=== PATIENT | female | born 1985 ===

== ENCOUNTER 2018-01-12 14:05 | Emergency (ER) | payer BC ==
[2018-01-12 14:30] VITALS: BP 128/71
--- NOTE | 2018-01-12 15:02 | RAD ---
HISTORY: Right elbow pain, status post fall COMPARISONS: None VIEWS: 4, Frontal, lateral, and oblique views of the right elbow FINDINGS: BONE DENSITY: Normal. BONES: There is a minimally impacted fracture of the radial head. JOINTS: There is no arthropathy. There is a small joint effusion. ALIGNMENT: There is no dislocation. SOFT TISSUES: Unremarkable. OTHER FINDINGS: None. IMPRESSION: MINIMALLY IMPACTED FRACTURE OF THE RADIAL HEAD
--- NOTE | 2018-01-12 15:06 | RAD ---
INDICATION: Right wrist injury. TECHNIQUE: 3 views of the right wrist were obtained. FINDINGS: The bones are normal alignment. Joint spaces appear maintained. There is a faint radiolucent line present at the base of the second metacarpal in the metaphysis likely incidental although a nondisplaced fracture cannot be excluded. No other fractures are seen. IMPRESSION: THERE IS A FAINT RADIOLUCENT LINE PRESENT AT THE BASE OF THE SECOND METACARPAL, LIKELY ARTIFACTUAL ALTHOUGH A FRACTURE CANNOT BE EXCLUDED. RECOMMEND CLINICAL CORRELATION.
--- NOTE | 2018-01-12 15:19 | RAD ---
HISTORY: Pain, status post fall COMPARISONS: Elbow dated January 12, 2018 VIEWS: 2, Frontal and lateral views of the right forearm FINDINGS: BONE DENSITY: Normal. BONES: Again noted is a fracture of the radial head as described on the elbow film. JOINTS: There is no arthropathy. ALIGNMENT: There is no dislocation. SOFT TISSUES: Unremarkable. OTHER FINDINGS: None. IMPRESSION: AGAIN NOTED IS A FRACTURE OF THE RADIAL HEAD.
--- NOTE | 2018-01-12 17:47 | UC ---
Marcell Borrego Nikita, scribed for Wiliam Nguyen MD on 01/12/18 at 1444 . Upper Extremity HPI - HPI Summary HPI Summary: This patient is a 32 year old F presenting to [facility] with a chief complaint of R elbow, R forearm, and R wrist pain s/p fall while rollerblading 2 days ago. The CC is described as aching. The patient rates the pain 6/10 in severity. Symptoms aggravated by nothing. Symptoms alleviated by nothing. Patient denies R hand pain. - History of Current Complaint Chief Complaint: UCUpperExtremity Stated Complaint: FELL RIGHT ARM INJURY Time Seen by Provider: 01/12/18 14:25 Hx Obtained From: Patient Hx Last Menstrual Period: 01/07/18 Onset/Duration: Sudden Onset, Lasting Days, Still Present Severity Initially: Moderate Severity Currently: Moderate Pain Intensity: 6 Pain Scale Used: 0-10 Numeric Location Of Pain: Is Discrete @ - R elbow, R forearm, and R wrist Character: Aching Aggravating Factor(s): Nothing Alleviating Factor(s): Nothing Associated Signs And Symptoms: Positive: Other - Patient denies R hand pain. - Allergies/Home Medications Allergies/Adverse Reactions: Allergies Allergy/AdvReac Type Severity Reaction Status Date / Time No Known Allergies Allergy Verified 01/12/18 14:30 Home Medications: Home Medications NK [No Home Medications Reported] 01/12/18 [History Confirmed 01/12/18] PMH/Surg Hx/FS Hx/Imm Hx Endocrine History: Other Other Endocrine History: No DM Cardiovascular History: Other Other Cardiovascular History: No HTN, CAD - Surgical History Surgical History: None - Family History Known Family History: Negative: Cardiac Disease, Hypertension, Diabetes - Social History Alcohol Use: Occasionally Substance Use Type: None Smoking Status (MU): Never Smoked Tobacco - Immunization History Most Recent Tetanus Shot: UTD Review of Systems Constitutional: Other - denies fever Musculoskeletal: Other: - R elbow, R forearm, and R wrist pain; Denies R hand pain All Other Systems Reviewed And Are Negative: Yes Physical Exam - Summary Physical Exam Summary: VITAL SIGNS: Reviewed. GENERAL: ~Patient is a well developed and nourished FEMALE who is lying comfortable in the stretcher. ~Patient is not in any acute respiratory distress. HEAD AND FACE: Normocephalic EYES: PERRLA, EOMI x 2. EARS: Hearing grossly intact. MOUTH: Oropharynx within normal limits. NECK: Supple, trachea is midline, no adenopathy, no JVD, no carotid bruit. CHEST: Symmetric, no tenderness at palpation LUNGS: Clear to auscultation bilaterally. No wheezing or crackles. CVS: Regular rate and rhythm, S1 and S2 present, no murmurs or gallops appreciated. ABDOMEN: Soft, non-tender. Bowel sounds are normal. No abdominal abnormal pulsations. EXTREMITIES: Full ROM in all major joints, no cyanosis or clubbing. Swelling around R elbow, tenderness of the R forearm and R wrist. NEURO: Alert and oriented x 3. No acute neurological deficits. Speech is normal and follows commands. SKIN: Dry and warm Triage Information Reviewed: Yes Vital Signs: Initial Vital Signs Temp 98.4 F 01/12/18 14:25 Pulse 82 01/12/18 14:25 Resp 17 01/12/18 14:25 BP 128/71 01/12/18 14:25 Pulse Ox 100 01/12/18 14:25 Vital Signs Reviewed: Yes Diagnostics - Radiology R Wrist XR Radiology Interpretation Completed By: Radiologist - THERE IS A FAINT RADIOLUCENT LINE PRESENT AT THE BASE OF THE SECOND METACARPAL, LIKELY ARTIFACTUAL ALTHOUGH A FRACTURE CANNOT BE EXCLUDED. RECOMMEND CLINICAL CORRELATION. [facility] physician has reviewed this radiology report. R elbow XR Radiology Interpretation Completed By: Radiologist - MINIMALLY IMPACTED FRACTURE OF THE RADIAL HEAD. [facility] physician has reviewed this radiology report. Re-Evaluation - Re-Evaluation First Eval Re-Evaluation Time: 14:59 Comment: Discussed lab results with the pt. Splint was placed. Upper Extremity Course/Dx - Course Course Of Treatment: This patient is a 32 year old F presenting to [facility] with a chief complaint of R elbow, R forearm, and R wrist pain s/p fall while rollerblading 2 days ago. R elbow XR reveals MINIMALLY IMPACTED FRACTURE OF THE RADIAL HEAD. R wrist XR reveals THERE IS A FAINT RADIOLUCENT LINE PRESENT AT THE BASE OF THE SECOND METACARPAL, LIKELY ARTIFACTUAL ALTHOUGH A FRACTURE CANNOT BE EXCLUDED. RECOMMEND CLINICAL CORRELATION. Since the patient has a radial head fracture, she was placed in a posterior splint and is discharged with instructions to see an orthopedist in the next couple of days. The pt is hemodynamically stable, alert and oriented x3. I discussed all the findings and test results with the patient. Patient was instructed to return to the urgent care or go to ER immediately if any of the symptoms return or worsens. Plan of care was discussed with the patient, and patient understands and agrees. All questions were answered to patient satisfaction. There were no further complaints or concerns. - Differential Dx/Diagnosis Provider Diagnoses: radial head fracture Discharge - Sign-Out/Discharge Documenting (check all that apply): Discharge - Discharge Plan Condition: Stable Disposition: HOME Patient Education Materials: Elbow Fracture (ED) Forms: *Work Release Referrals: Aren Aguilar MD [Medical Doctor] - Additional Instructions: RETURN TO URGENT CARE FOR ANY WORSENING OR NEW SYMPTOMS. The documentation as recorded by the Marcell berger Nikita accurately reflects the service I personally performed and the decisions made by me, Wiliam Nguyen MD.
== END 2018-01-12 15:30 | disposition home or self-care (01) ==
LOC: UCEAST 14:05
DX: S52.124A Nondisplaced fracture of head of right radius, initial encounter for closed fracture (principal); W18.30XA Fall on same level, unspecified, initial encounter; Y93.51 Activity, roller skating (inline) and skateboarding; Y92.9 Unspecified place or not applicable
CPT/HCPCS: 25605; 99202; G0463

== ENCOUNTER 2018-05-10 18:43 | Emergency (ER) | payer BC ==
[2018-05-10 19:05] VITALS: BP 125/68
--- NOTE | 2018-05-10 19:35 | UC ---
Lower Extremity/Ankle HPI - HPI Summary HPI Summary: RUNNING DOWN THE STAIRS A FEW HOURS AGO AND WHEN SHE STEPPED OFF THE LAST STEP SHE HAD SUDDEN SHARP PAIN IN THE RIGHT CALF. FELT LIKE SHE WAS HIT IN THE CALF WITH A BASEBALL. SHE HAS BEEN ICING IT. CAN WEIGHT-BEAR BUT WITH SEVERE PAIN. - History of Current Complaint Chief Complaint: UCLowerExtremity Stated Complaint: LEG INJURY Time Seen by Provider: 05/10/18 19:07 Hx Obtained From: Patient Hx Last Menstrual Period: 04/22/18 Onset/Duration: Sudden Onset, Lasting Hours, Still Present Severity Initially: Moderate Severity Currently: Moderate Pain Intensity: 7 Pain Scale Used: 0-10 Numeric Aggravating Factor(s): Standing, Ambulation Alleviating Factor(s): Rest, Elevation Able to Bear Weight: Yes - WITH SEVERE PAIN - Allergies/Home Medications Allergies/Adverse Reactions: Allergies Allergy/AdvReac Type Severity Reaction Status Date / Time No Known Allergies Allergy Verified 05/10/18 18:57 PMH/Surg Hx/FS Hx/Imm Hx Previously Healthy: Yes - Surgical History Surgical History: None - Family History Known Family History: Positive: Cardiac Disease, Hypertension Negative: Diabetes - Social History Alcohol Use: Occasionally Substance Use Type: None Smoking Status (MU): Never Smoked Tobacco - Immunization History Most Recent Tetanus Shot: UTD Review of Systems Constitutional: Negative Skin: Negative Respiratory: Negative Cardiovascular: Negative Gastrointestinal: Negative Musculoskeletal: Calf Tenderness, Myalgia All Other Systems Reviewed And Are Negative: Yes Physical Exam Triage Information Reviewed: Yes Appearance: Well-Appearing, No Pain Distress, Well-Nourished Vital Signs: Initial Vital Signs Temp 98.5 F 05/10/18 18:58 Pulse 92 05/10/18 18:58 Resp 18 05/10/18 18:58 BP 125/68 05/10/18 18:58 Pulse Ox 99 05/10/18 18:58 Vital Signs Reviewed: Yes Eyes: Positive: Conjunctiva Clear ENT: Positive: Hearing grossly normal Neck: Positive: Supple Respiratory: Positive: No respiratory distress, No accessory muscle use Cardiovascular: Positive: Pulses Normal Abdomen Description: Positive: Soft Musculoskeletal: Positive: ROM Intact, No Edema, Other: - RIGHT CALF TENDERNESS. PAIN WITH ACTIVE PLANTAR FLEXION AND PASSIVE DORIFLEXION. ACHILLES INTACT. CALF CIRC 46.5CM Neurological: Positive: Alert Psychological: Positive: Age Appropriate Behavior Skin: Negative: rashes Lower Extremity Course/Dx - Differential Dx/Diagnosis Provider Diagnoses: RIGHT GASTROCNEMIUS STRAIN Discharge - Sign-Out/Discharge Documenting (check all that apply): Patient Departure - Discharge Plan Condition: Stable Disposition: HOME Forms: *Work Release Referrals: Stacy Contreras MD [Primary Care Provider] - If Needed Kath Hare MD [Medical Doctor] - 1 Week Additional Instructions: GASTROCNEMIUS STRAIN I SUSPECT YOU HAVE SUSTAINED A GASTROCNEMIUS STRAIN. USE THE EYAD BANDAGE FOR COMPRESSION OR PURCHASE A CALF COMPRESSION SLEEVE. IBUPROFEN NEEDED FOR DISCOMFORT. REST AND AVOID WEIGHTBEARING ABLE. ELEVATE YOUR LEG WHEN SEATED. USE THE CRUTCHES OR A CANE TO HELP WITH MOBILITY. CALL [facility] FRIDAY MORNING FOR AN APPOINTMENT TO BE SEEN THIS WEEK. The initial treatment for a gastrocnemius tear is rest until you can walk without a limp. If pain is severe, you may need crutches to assist with ambulation. Heel lifts decrease the stretch of the calf muscles, thereby reducing pain, and may be beneficial initially. You should apply ice to the injured area four times per day for 20 minutes at a time until swelling subsides. Nonsteroidal antiinflammatory medication or acetaminophen can be used as needed for pain. Compression sleeves worn over the calf help to decrease hematoma formation, especially shortly after the injury. In addition, use of compression sleeves may help speed return to activity. - Billing Disposition and Condition Condition: STABLE Disposition: Home
--- NOTE | 2018-05-12 14:44 | UC ---
- Progress Note Progress Note: PT CALLED TO REQUEST AN ADDITIONAL DAY OFF. STATES HER PAIN IS IMPROVED BUT SHE IS STILL HAVING SOME TROUBLE WITH MOBILITY AND AN EXTRA DAY WOULD BE HELPFUL. NOTE PROVIDED AND LEFT AT FRONT FOR INTERVENTIONIST. - BRAD HO MD Discharge - Sign-Out/Discharge Documenting (check all that apply): Post-Discharge Follow Up - Discharge Plan Condition: Stable Disposition: HOME Forms: *Work Release Referrals: Stacy Contreras MD [Primary Care Provider] - If Needed Kath Hare MD [Medical Doctor] - 1 Week Additional Instructions: GASTROCNEMIUS STRAIN I SUSPECT YOU HAVE SUSTAINED A GASTROCNEMIUS STRAIN. USE THE EYAD BANDAGE FOR COMPRESSION OR PURCHASE A CALF COMPRESSION SLEEVE. IBUPROFEN NEEDED FOR DISCOMFORT. REST AND AVOID WEIGHTBEARING ABLE. ELEVATE YOUR LEG WHEN SEATED. USE THE CRUTCHES OR A CANE TO HELP WITH MOBILITY. CALL [facility] FIRST [facility] Friday FOR AN APPOINTMENT TO BE SEEN THIS WEEK. The initial treatment for a gastrocnemius tear is rest until you can walk without a limp. If pain is severe, you may need crutches to assist with ambulation. Heel lifts decrease the stretch of the calf muscles, thereby reducing pain, and may be beneficial initially. You should apply ice to the injured area four times per day for 20 minutes at a time until swelling subsides. Nonsteroidal antiinflammatory medication or acetaminophen can be used as needed for pain. Compression sleeves worn over the calf help to decrease hematoma formation, especially shortly after the injury. In addition, use of compression sleeves may help speed return to activity. - Billing Disposition and Condition Condition: STABLE Disposition: Home
== END 2018-05-10 19:51 | disposition home or self-care (01) ==
LOC: UCEAST 18:43
DX: S86.811A Strain of other muscle(s) and tendon(s) at lower leg level, right leg, initial encounter (principal); X58.XXXA Exposure to other specified factors, initial encounter; Y93.9 Activity, unspecified; Y99.9 Unspecified external cause status
CPT/HCPCS: 99213; G0463